=== PATIENT | female | born 1970 | race Caucasian/White ===

== ENCOUNTER 2018-08-25 11:33 | Emergency (ER) | payer BC, OTHER ==
--- OUTSIDE RECORDS SUMMARY | 2018-08-25 11:35 | XMS REPORT ---
:1970 Author Organization eClinicalWorks Care Team Providers Name Role Phone Marcus Bonilla Provider Role Unavailable Allergies No Known Allergies Problems Problem Type Condition Code Onset Dates Condition Status Problem Persistent insomnia G47.00 Active Problem GERD (gastroesophageal reflux K21.9 Active disease) Problem Restless leg syndrome G25.81 Active Problem HTN, goal below 140/90 I10 Active Problem Tobacco use disorder F17.200 Active Problem Migraine without aura, not G43.009 Active intractable, without status migrainosus Problem Hyperlipidemia, mixed E78.2 Active Problem Colon polyps K63.5 Active Medications No Known Medications Results No Known Results Summary Purpose EmotifyinicalSongAfter Submission
--- OUTSIDE RECORDS SUMMARY | 2018-08-25 11:35 | XMS REPORT ---
:1970 Author Organization eClinicalWorks Care Team Providers Name Role Phone Reinaldo Uriarte Provider Role Unavailable Allergies No Known Allergies Problems Problem Type Condition Code Onset Dates Condition Status Assessment Persistent insomnia G47.00 Active Problem Restless leg syndrome G25.81 Active Problem Hyperlipidemia, mixed E78.2 Active Problem GERD (gastroesophageal reflux K21.9 Active disease) Problem Migraine without aura, not G43.009 Active intractable, without status migrainosus Problem Persistent insomnia G47.00 Active Problem Colon polyps K63.5 Active Problem Tobacco use disorder F17.200 Active Medications Medication Code System Code Instructions Start End Date Status Dos[facility] 17667684990 10 MG Orally Active 1 tablet at Once a day bedtime as needed Results No Known Results Summary Purpose eClinicalWorks Submission
--- OUTSIDE RECORDS SUMMARY | 2018-08-25 11:35 | XMS REPORT ---
:1970 Author Organization eClinicalWorks Care Team Providers Name Role Phone Uriarte Reinaldo Provider Role Unavailable Allergies, Adverse Reactions, Alerts Substance Reaction Event Type penicillin Info Not Available Drug Allergy Problems Problem Type Condition Code Onset Dates Condition Status Assessment HTN, goal below 140/90 I10 Active Problem Persistent insomnia G47.00 Active Problem GERD (gastroesophageal reflux K21.9 Active disease) Problem Restless leg syndrome G25.81 Active Problem HTN, goal below 140/90 I10 Active Problem Tobacco use disorder F17.200 Active Problem Migraine without aura, not G43.009 Active intractable, without status migrainosus Problem Hyperlipidemia, mixed E78.2 Active Problem Colon polyps K63.5 Active Assessment Colon polyps K63.5 Active Assessment GERD (gastroesophageal reflux K21.9 Active disease) Assessment Persistent insomnia G47.00 Active Assessment Tobacco use disorder F17.200 Active Assessment Restless leg syndrome G25.81 Active Assessment Migraine without aura, not G43.009 Active intractable, without status migrainosus Assessment Hyperlipidemia, mixed E78.2 Active Medications Medication Code Code Instructions Start End Date Status Dosage System Date Chantix [facility] 71956299630 1 MG Orally Active 1 tablet Twice a day Mirapex [facility] 40970857303 0.25 Orally Once Active take one a day tablet by mouth daily Ambien [facility] 97120961528 10 MG Orally Active 1 tablet Once a day at bedtime as needed Lipitor [facility] 20016160523 20 MG Orally Active 1 tablet Once a day Chantix [facility] 91696681991 1 MG Orally Active 1 tablet Twice a day Omeprazole [facility] 90462463023 40 MG Orally Active 1 capsule Once a day Imitrex [facility] 44672586738 100 MG Orally Active 1 tablet Twice a day as needed Lisinopril/HCT [facility] 57801898096 10/12.5 mg PO Q September Active one tab Z 2018 Results No Known Results Summary Purpose eClinicalWorks Submission
--- OUTSIDE RECORDS SUMMARY | 2018-08-25 11:35 | XMS REPORT ---
:1970 Author Organization eClinicalWorks Care Team Providers Name Role Phone UriarteReinaldo Provider Role Unavailable Allergies No Known Allergies Problems Problem Type Condition Code Onset Dates Condition Status Assessment Restless leg syndrome G25.81 Active Assessment Hyperlipidemia, mixed E78.2 Active Problem Restless leg syndrome G25.81 Active Problem Hyperlipidemia, mixed E78.2 Active Problem GERD (gastroesophageal reflux K21.9 Active disease) Problem Migraine without aura, not G43.009 Active intractable, without status migrainosus Problem Persistent insomnia G47.00 Active Problem Colon polyps K63.5 Active Problem Tobacco use disorder F17.200 Active Assessment Tobacco use disorder F17.200 Active Assessment Migraine without aura, not G43.009 Active intractable, without status migrainosus Assessment GERD (gastroesophageal reflux K21.9 Active disease) Assessment Colon polyps K63.5 Active Assessment Persistent insomnia G47.00 Active Medications Medication Code System Code Instructions Start End Date Status Dosage Date Lipitor [facility] 89010617135 20 MG Orally Active 1 tablet Once a day Omeprazole [facility] 02080080013 40 MG Orally Active 1 capsule Once a day Mirapex [facility] 05497112646 0.25 Active TAKE ONE TABLET BY MOUTH DAILY Imitrex [facility] 49103882761 100 MG Orally Active 1 tablet as Twice a day needed Ambien [place] 21367108684 10 MG Orally Active 1 tablet at Once a day bedtime as needed Mirapex [facility] 57027895707 0.25 Active TAKE ONE TABLET BY MOUTH DAILY Chantix ND 01554130834 1 MG Orally Active 1 tablet Twice a day Lipitor ND 53212336896 20 MG Active TAKE ONE TABLET BY MOUTH DAILY Omeprazole ND 68916963560 40 MG Orally Active 1 capsule Once a day Results No Known Results Summary Purpose eClinicalWorks Submission
--- OUTSIDE RECORDS SUMMARY | 2018-08-25 11:35 | XMS REPORT ---
:1970 Author Organization eClinicalWorks Care Team Providers Name Role Phone Reinaldo Uriarte Provider Role Unavailable Allergies, Adverse Reactions, Alerts Substance Reaction Event Type penicillin Info Not Available Drug Allergy Problems Problem Type Condition Code Onset Dates Condition Status Assessment Hyperlipidemia, mixed E78.2 Active Problem Persistent insomnia G47.00 Active Problem [...] G43.009 Active intractable, without status migrainosus Assessment HTN, goal below 140/90 I10 Active Medications Medication Code Code Instructions Start End Status Dosage System Date Date Imitrex [facility] 63242355311 100 MG Orally Active 1 tablet Twice a day as needed Lipitor [facility] 61547002686 20 MG Orally Active 1 tablet Once a day Mirapex [facility] 79764839684 0.25 Active TAKE ONE TABLET BY MOUTH DAILY Lipitor [facility] 16969658779 20 MG Active TAKE ONE TABLET BY MOUTH DAILY Omeprazole [facility] 76765289386 40 MG Orally Active 1 capsule Once a day Chantix [facility] 29433633935 1 MG Orally Active 1 tablet Twice a day Ambien [facility] 35829105124 10 MG Orally Active 1 tablet Once a day at bedtime as needed Omeprazole [facility] 23631603712 40 MG Orally Active 1 capsule Once a day Mirapex [facility] 33100705578 0.25 MG Active TAKE ONE TABLET BY MOUTH DAILY Lisinopril/HCT [facility] 05176864137 10/12.5 mg PO Q Oct 16, May 12, Active one tab Z 2017 Results No Known Results Summary Purpose eClinicalWorks Submission
--- OUTSIDE RECORDS SUMMARY | 2018-08-25 11:35 | XMS REPORT ---
:1970 Author Organization eClinicalWorks Care Team Providers Name Role Phone Chapito Reinaldo Provider Role Unavailable Allergies No Known Allergies Problems Problem Type Condition Code Onset Dates Condition Status Assessment Persistent insomnia G47.00 Active Assessment Hyperlipidemia, mixed E78.2 Active Assessment Restless leg syndrome G25.81 Active Problem Restless leg syndrome G25.81 Active Problem Hyperlipidemia, mixed E78.2 Active Problem GERD (gastroesophageal reflux K21.9 Active disease) Problem Migraine without aura, not G43.009 Active intractable, without status migrainosus Problem Persistent insomnia G47.00 Active Problem Colon polyps K63.5 Active Problem Tobacco use disorder F17.200 Active Assessment Colon polyps K63.5 Active Assessment Tobacco use disorder F17.200 Active Assessment Migraine without aura, not G43.009 Active intractable, without status migrainosus Assessment GERD (gastroesophageal reflux K21.9 Active disease) Medications Medication Code System Code Instructions Start End Date Status Dosage Date Chantix [facility] 00421971750 1 MG Orally Active 1 tablet Twice a day Ambien [facility] 30139872690 10 MG Orally Active 1 tablet at Once a day bedtime as needed Lipitor [facility] 70025300778 20 MG Orally Active 1 tablet Once a day Mirapex [facility] 88137165300 0.25 Active TAKE ONE TABLET BY MOUTH DAILY Omeprazole [facility] 28128048927 40 MG Orally Active 1 capsule Once a day Imitrex [facility] 40056965766 100 MG Orally Active 1 tablet as Twice a day needed Results No Known Results Summary Purpose eClinicalWorks Submission
[2018-08-25 14:00] LABS: ALT/SGPT 37 U/L (12-78); AST/SGOT 29 U/L (15-37); Albumin 4.1 g/dL (3.4-5.0); Alkaline Phosphatase 78 U/L (45-117); BUN Blood Urea Nitrogen 13 mg/dL (7-18); Bicarbonate 28 mmol/L (21-32); Bilirubin Direct < 0.1 mg/dL (0-0.2); Bilirubin Total 0.2 mg/dL (0.2-1.0); Glucose Level 117 mg/dL (74-106); Lipase 101 U/L (73-393); Potassium 3.4 mmol/L (3.5-5.1); Protein, Total 7.7 g/dL (6.4-8.2); Sodium Level 139 mmol/L (136-145)
[2018-08-25 14:02] LABS: Absolute Lymphocytes (CBC) 3.8 K/uL (0.7-4.9); Absolute Monocytes 0.7 K/uL (0.1-1.3); Basophils % 0.2 % (0-1.3); Eosinophils % 1.2 % (0-4.4); Lymphocytes % 32.8 % (15.3-44.8); MPV 8.7 fL (7.6-11.3); Monocytes % 5.9 % (3.3-12.3); RBC Red Blood Cell Count 4.88 M/uL (3.86-4.86)
--- NOTE | 2018-08-25 14:11 | RAD REPORT ---
EXAM DESCRIPTION: CT - Head Brain Wo Cont - 08/25/2018 1:43 pm CLINICAL HISTORY: Blurred vision COMPARISON: None. TECHNIQUE: Computed axial tomography of the head was obtained. IV contrast was not requested. All CT scans are performed using dose optimization technique as appropriate and may include automated exposure control or mA/KV adjustment according to patient size. FINDINGS: An intracranial bleed is not seen . The ventricles are normal in caliber. No extra-axial fluid collection is noted. Fluid within the sinuses/ mastoids is not seen. IMPRESSION: No acute intracranial abnormality is seen. If patient's symptoms persist MRI of the bra in would be recommended.
--- NOTE | 2018-08-25 14:59 | ER ---
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 Transition of care: patient was not received from another setting of care. Onset of symptoms was August 25, 2018. Risk Assessment: Do you want to hurt yourself or someone else? Patient reports no desire to harm self or others. Initial Sepsis Screen: Does the patient meet any 2 criteria? No. Patient's initial sepsis screen is negative. Does the patient have a suspected source of infection? No. Patient's initial sepsis screen is negative. Care prior to arrival: None. 11:48 Method Of Arrival: Ambulatory sg 11:48 Acuity: MARCO 3 sg Triage Assessment: 11:45 General: Appears in no apparent distress. comfortable, well groomed, well developed, sg well nourished, Behavior is calm, cooperative, appropriate for age. Pain: Denies pain. Neuro: Level of Consciousness is awake, alert, obeys commands, Oriented to person, place, time, situation, Flat Grinder Operator are equal bilaterally Moves all extremities. 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 Respiratory: Airway is patent Respiratory effort is even, unlabored, Respiratory pattern is regular, symmetrical. Derm: Skin is pink, warm \\T\\ dry. AVP: 11:46 LMP N/A - Irregular menses sg Historical: - Allergies: 11:46 PENICILLINS; sg - Home Meds: 11:46 lisinopril Oral [Active]; Lipitor Oral [Active]; Ambien Oral [Active]; sg - PMHx: 12:18 Hypertension; sg - PSHx: 12:18 Breast Augmentation; sg - Immunization history:: Adult Immunizations up to date. - Social history:: Smoking status: Patient uses tobacco products, denies chronic smoking, but will smoke occasionally. - Ebola Screening: : Patient negative for fever greater than or equal to 101.5 degrees Fahrenheit, and additional compatible Ebola Virus Disease symptoms Patient denies exposure to infectious person Patient denies travel to an Ebola-affected area in the 21 days before illness onset No symptoms or risks identified at this time. Screenin:02 Abuse screen: Denies threats or abuse. Denies injuries from another. Nutritional ca1 screening: No deficits noted. Tuberculosis screening: No symptoms or risk factors identified. Fall Risk None identified. Assessment: 13:02 General: Appears in no apparent distress. comfortable, Behavior is calm, cooperative, ca1 appropriate for age. Pain: Denies pain. Neuro: Level of Consciousness is awake, alert, obeys commands, Oriented to person, place, time, situation, Flat Grinder Operator are equal bilaterally Moves all extremities. Speech is normal, Facial symmetry appears normal, Reports seeing "rainbows" at around 1030 today.. Cardiovascular: Heart tones S1 S2 present Capillary refill < 3 seconds Patient's skin is warm and dry. Respiratory: Airway is patent Respiratory effort is even, unlabored, Respiratory pattern is regular, symmetrical, Breath sounds are clear bilaterally. GI: Abdomen is round non-distended, Bowel sounds present X 4 quads. Abd is soft and non tender X 4 quads. Reports nausea. : No signs and/or symptoms were reported regarding the genitourinary system. EENT: No signs and/or symptoms were reported regarding the EENT system. Derm: Skin is intact, is healthy with good turgor, Skin is pink, warm \\T\\ dry. Musculoskeletal: Circulation, motion, and sensation intact. Capillary refill < 3 seconds. 14:02 Reassessment: Patient appears in no apparent distress at this time. No changes from ca1 previously documented assessment. Patient and/or family updated on plan of care and expected duration. Pain level reassessed. Patient is alert, oriented x 3, equal unlabored respirations, skin warm/dry/pink. 14:46 Reassessment: Patient appears in no apparent distress at this time. Patient is alert, ca1 oriented x 3, equal unlabored respirations, skin warm/dry/pink. LOGAN Singh at bedside. Vital Signs: 11:43 Pulse 77; Resp 18; Pulse Ox 98% on R/A; sg 11:46 BP 149 / 77; Pulse Ox 98% on R/A; sg 11:46 Weight 82.55 kg; Height 5 ft. 6 in. (167.64 cm); sg 13:02 BP 126 / 71; Pulse 94; Resp 19; Pulse Ox 99% on R/A; Pain 0/10; ca1 14:02 BP 141 / 62; Pulse 65; Resp 18; Pulse Ox 100% on R/A; ca1 14:46 BP 118 / 62; Pulse 74; Resp 18; Pulse Ox 99% on R/A; ca1 11:46 Body Mass Index 29.38 (82.55 kg, 167.64 cm) ED Course: 11:35 Patient arrived in ED. rg4 11:43 Arm band placed on. sg 11:52 Triage completed. 12:57 Jason Hayward PA is PHCP. [facility] 12:57 Otis Iqbal MD is Attending Physician. [facility] 13:02 Patient has correct armband on for positive identification. Placed in gown. Bed in low ca1 position. Call light in reach. Side rails up X 1. Pulse ox on. NIBP on. Warm blanket given. 13:16 Claudette Medina, LEVI is Primary Nurse. ca1 13:[address] via stretcher. em2 13:42 CT Head Brain wo Cont In Process Unspecified. EDMS 13:45 Initial lab(s) drawn, by nh, sent to lab. Inserted saline lock: 20 gauge in right ms antecubital area, using aseptic technique. Blood collected. 14:25 EKG done, by civil geotechnical engineer. reviewed by Jason FORD. 3 14:58 Rafa Pastor MD is Referral Physician. [facility] 15:05 No provider procedures requiring assistance completed. IV discontinued, intact, ca1 bleeding controlled, No redness/swelling at site. Pressure dressing applied. Administered Medications: No medications were administered Outcome: 14:58 Discharge ordered by . [facility] 15:05 Discharged to home ambulatory. ca1 15:05 Condition: stable 15:05 Discharge instructions given to patient, Instructed on discharge instructions, follow up and referral plans. Demonstrated understanding of instructions, follow-up care. 15:06 Patient left the ED. ca1 Signatures: Dispatcher [employer] EDMS Jimmy Cameron, LEVI RN Jason Hayward PA PA jmm Solis, Maria ms Shane, Greg em2 Lucia Mcgee4 Donita Lynn sm3 Claudette Medina, RN RN ca1 Corrections: (The following items were deleted from the chart) 11:46 11:44 Allergies: No Known Allergies; sg sg
--- NOTE | 2018-08-25 14:59 | EDPHYS ---
Physician Documentation [facility] Name: Susie You Age: 48 yrs Sex: Female : 1970 Arrival Date: 08/25/2018 Time: 11:35 Bed 30 Private MD: ED Physician Otis Iqbal HPI: 08/25 13:17 This 48 yrs old Female presents to ER via Ambulatory with complaints of jmm Dizziness. 13:17 The patient is experiencing vision change. Onset: The symptoms/episode began/occurred jmm acutely, at 10:30. Aggravated by nothing. Alleviated by nothing. This is a 48 year old female with a history of htn that presents to the ED with complaints of vision changes beginning at 1030 while at work. Patient states that she saw multiple colors which would spread to her periphery. Denies weakness, denies dizziness. Symptoms are currently resolved. Patient states that she does have a history of migraine headaches but denies ever experiencing an aura. . 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 - Social history:: Smoking status: Patient uses tobacco products, denies chronic smoking, but will smoke occasionally. - Ebola Screening: : Patient negative for fever greater than or equal to 101.5 degrees Fahrenheit, and additional compatible Ebola Virus Disease symptoms Patient denies exposure to infectious person Patient denies travel to an Ebola-affected area in the 21 days before illness onset No symptoms or risks identified at this time. ROS: 13:17 Constitutional: Negative for fever, chills, and weight loss. jmm 13:17 Cardiovascular: Negative for chest pain, palpitations, and edema, Respiratory: Negative for shortness of breath, cough, wheezing, and pleuritic chest pain, Neuro: Negative for headache, weakness, numbness, tingling, and seizure. 13:17 Eyes: Positive for visual disturbance. 13:17 All other systems are negative. Exam: 13:17 Constitutional: This is a well developed, well nourished patient who is awake, alert, jmm and in no acute distress. Head/Face: atraumatic. Eyes: EOMI, no conjunctival erythema appreciated ENT: Moist Mucus Membranes 13:17 Chest/axilla: Normal chest wall appearance and motion. 13:17 Respiratory: Normal respirations, no respiratory distress appreciated Abdomen/GI: Non distended, soft Back: Normal ROM Skin: General appearance color normal MS/ Extremity: Moves all extremities, no obvious deformities appreciated, no edema noted to the lower extremities Neuro: Awake and alert, normal gait Psych: Behavior is normal, Mood is normal, Patient is cooperative and pleasant 13:17 Eyes: Extraocular movements: intact throughout, Visual aviles: are intact. 13:17 Cardiovascular: Rate: normal, Rhythm: regular, Pulses: no pulse deficits are appreciated. 13:17 Neuro: Orientation: is normal, Mentation: is normal, Memory: is normal, Cerebellar function: normal finger to nose testing, heel to ledezma testing is normal, Gait: is steady. Vital Signs: 11:43 Pulse 77; Resp 18; Pulse Ox 98% on R/A; sg 11:46 BP 149 / 77; Pulse Ox 98% on R/A; sg 11:46 Weight 82.55 kg; Height 5 ft. 6 in. (167.64 cm); sg 13:02 BP 126 / 71; Pulse 94; Resp 19; Pulse Ox 99% on R/A; Pain 0/10; ca1 14:02 BP 141 / 62; Pulse 65; Resp 18; Pulse Ox 100% on R/A; ca1 14:46 BP 118 / 62; Pulse 74; Resp 18; Pulse Ox 99% on R/A; ca1 11:46 Body Mass Index 29.38 (82.55 kg, 167.64 cm) MDM: 13:17 Patient medically screened. [facility] 14:57 Data reviewed: vital signs, nurses notes. Counseling: I had a detailed discussion with [facility] the patient and/or guardian regarding: the historical points, exam findings, and any diagnostic results supporting the discharge/admit diagnosis, lab results, radiology results, the need for outpatient follow up, to return to the emergency department if symptoms worsen or persist or if there are any questions or concerns that arise at home. ED course: Patient is alert and non toxic in appearance in the ED. Symptoms are resolved. Patient has normal neuro exam. CT negative. I do not suspect CVA based of PE findings. Patient advised to follow up with neuro for further evaluation. patient is otherwise given strict return precautions. patient understood and agrees with the plan of care. . 08/25 13:17 Order name: Basic Metabolic Panel; Complete Time: 14:14 [facility] 08/25 13:17 Order name: CBC with Diff; Complete Time: 14:14 [facility] 08/25 13:17 Order name: Creatinine for Radiology; Complete Time: 13:58 [facility] 08/25 13:17 Order name: Hepatic Function; Complete Time: 14:14 [facility] 08/25 13:17 Order name: Lipase; Complete Time: 14:14 [facility] 08/25 13:22 Order name: PT-INR [facility] 08/25 13:17 Order name: IV Saline Lock; Complete Time: 13:31 [facility] 08/25 13:17 Order name: Labs collected and sent; Complete Time: 13:32 [facility] 08/25 13:17 Order name: Urine Dipstick-Ancillary (obtain specimen); Complete Time: 14:15 [facility] 08/25 13:18 Order name: CT Head Brain wo Cont; Complete Time: 14:14 08/25 13:22 Order name: EKG - Nurse/Tech; Complete Time: 14:22 [facility] 08/25 13:22 Order name: Troponin (emerg Dept Use Only); Complete Time: 14:14 [facility] 08/25 14:10 Order name: Urine Dipstick--Ancillary (enter results) bd Administered Medications: No medications were administered Disposition: 08/25/18 14:58 Discharged to Home. Impression: Visual disturbances. - Condition is Stable. - Discharge Instructions: Visual Disturbances. - Work release form, Medication Reconciliation Form, Thank You Letter, Antibiotic Education, Prescription Opioid Use form. - Follow up: Rafa Pastor MD; When: 2 - 3 days; Reason: Recheck today's complaints, Continuance of care, Re-evaluation by your physician. Addendum: 08/26/2018 19:03 Co-signature as Attending Physician, Otis Iqbal MD I agree with the assessment and k dr plan of care. Signatures: Dispatcher [employer] EDJimmy Cifuentes RN RN sg Rittger, Kevin, MD MD kdr Mickail, Joel, PA PA jmm Acob, Cheryl RN RN ca1 Corrections: (The following items were deleted from the chart) 08/25 11:46 11:44 Allergies: No Known Allergies; sg sg 15:06 14:58 08/25/2018 14:58 Discharged to Home. Impression: Visual disturbances. Condition ca1 is Stable. Forms are Medication Reconciliation Form, Thank You Letter, Antibiotic Education, Prescription Opioid Use. Follow up: Rafa Pastor; When: 2 - 3 days; Reason: Recheck today's complaints, Continuance of care, Re-evaluation by your physician. yue
[2018-08-25 19:34] LABS: Urine Blood TRACE (NEG); Urine Glucose NEGATIVE (NEG); Urine Protein NEGATIVE (NEG); Urine pH 6.5 (5.0-7.0)
--- NOTE | 2018-08-26 06:52 | EKG ---
Test Date: 2018-08-25 Test Time: 14:23:42 Padded Products Finisher: ARON MEASUREMENT RESULTS: Intervals: Rate: 66 SD: 146 QRSD: 106 QT: 448 QTc: 469 Check: P: 18 SD: 146 QRS: -20 T: 30 INTERPRETIVE STATEMENTS: Normal sinus rhythm Possible Anterior infarct, age undetermined Abnormal ECG No previous ECG available for comparison Electronically Signed On 08-26-18 06:51:46 GASKET INSPECTOR by Roly Singletary
== END 2018-08-25 15:06 | disposition home or self-care (01) ==
LOC: ER 11:33
DX: H53.9 Unspecified visual disturbance (principal); I10 Essential (primary) hypertension; Z72.0 Tobacco use; Z88.0 Allergy status to penicillin; Z98.82 Breast implant status
CPT/HCPCS: 36415; 70450; 80048; 80076; 81003; 83690; 84484; 85025; 85610; 93005; 99284